=== PATIENT | female | born 1950 | race Hispanic/Latino ===

== ENCOUNTER → 2019-10-22 | Outpatient (CLI) | payer OTHER | END | disposition home or self-care (01) | LOC: RAH 14:14 | PROVIDERS: ATTEND Family Medicine | DX: Z12.31 Encounter for screening mammogram for malignant neoplasm of breast (principal) | CPT/HCPCS: 77067 ==

== ENCOUNTER 2022-06-26 02:46 | Emergency (ER) | payer OTHER ==
[~2022-06-26] VITALS: Ht 167.6 cm; Wt 74.8 kg
[2022-06-26] MEDS: IBUPROFEN 200 MG TAB ONE (03:13)
[2022-06-26] MEDS: IBUPROFEN 400 MG TABLET ONE (03:13)
[2022-06-26] MEDS: IBUPROFEN 600 MG TABLET PO ONE (03:14)
[2022-06-26] MEDS: HYDROCODONE/ACETAMINOPHEN 10/325 MG TAB PO ONE (03:15)
[2022-06-26] MEDS: HYDROCODONE/ACETAMINOPHEN 10/325 MG TAB ONE (03:15)
[2022-06-26] MEDS ORDERED: ACET-2079 PO (03:32)
[2022-06-26] MEDS ORDERED: IBUP-2070 PO (03:32)
[2022-06-26 03:47] VITALS: BP 154/68
== END 2022-06-26 03:56 | disposition home or self-care (01) ==
LOC: EDH 02:46
DX: S93.492A Sprain of other ligament of left ankle, initial encounter (principal); F41.9 Anxiety disorder, unspecified; I10 Essential (primary) hypertension; E11.9 Type 2 diabetes mellitus without complications; E78.00 Pure hypercholesterolemia, unspecified; Z90.49 Acquired absence of other specified parts of digestive tract; Z90.89 Acquired absence of other organs; X50.1XXA Overexertion from prolonged static or awkward postures, initial encounter; Y93.89 Activity, other specified; Y92.89 Other specified places as the place of occurrence of the external cause; Y99.8 Other external cause status
CPT/HCPCS: 73610